=== PATIENT | female | born 1975 | race Caucasian/White ===

== ENCOUNTER 2016-12-08 12:41 | Emergency (ER) | payer MEDICAID ==
[~2016-12-08] VITALS: Ht 162.6 cm; Wt 80.2 kg
[2016-12-08] MEDS ORDERED: ONDANSETRON 2MG/ML, 2ML IVPush ONE (13:00)
[2016-12-08] MEDS ORDERED: SODIUM CHLORIDE 0.9% 1,000ML IVBOLUS ONE (13:00)
[2016-12-08] MEDS ORDERED: SODIUM CHLORIDE FLUSH 10ML SYR IVF ONE (13:00)
[2016-12-08] MEDS ORDERED: ONDANSETRON 2MG/ML, 2ML ONE (13:04)
[2016-12-08 14:00] LABS: BLOOD UREA NITROGEN 13 mg/dL (7-18)
[2016-12-08 14:08] LABS: ASPARTATE AMINO TRANSFERASE 302 U/L (15-37)
[2016-12-08 15:13] VITALS: BP 154/100
== END 2016-12-08 15:53 | disposition home or self-care (01) ==
LOC: ED 14:21
DX: R10.84 Generalized abdominal pain (principal); R11.2 Nausea with vomiting, unspecified; R19.7 Diarrhea, unspecified; R79.89 Other specified abnormal findings of blood chemistry; F17.200 Nicotine dependence, unspecified, uncomplicated
CPT/HCPCS: 36415; 74022; 76700; 80053; 81003; 83690; 84703; 85025; 86704; 86706; 86708; 86803; 87340; 96361; 96374; 99285; J2405; J7030

== ENCOUNTER 2018-07-24 10:24 | Inpatient (IN) | payer MEDICAID ==
[~2018-07-24] VITALS: Ht 162.6 cm; Wt 91.4 kg
[2018-07-24] MEDS ORDERED: ONDANSETRON 2MG/ML, 2ML IVPush ONE (11:00)
[2018-07-24] MEDS ORDERED: FAMOTIDINE 20 MG/2 ML IVP ONE (11:00)
[2018-07-24] MEDS ORDERED: MAALOX/HYOSCYAMINE/LIDOCAINE 45 ML BTL PO ONE (11:00)
[2018-07-24] MEDS ORDERED: MORPHINE SULFATE 4 MG/ML, 1ML IVPush PRN (11:00)
--- NOTE | 2018-07-24 11:04 | NUR ---
PT C/O ABDOMINAL PAIN SINCE THE "MIDDLE OF THE NIGHT" WITH TWO EPISODES OF VOMITING. PT HAD PAIN LAST THURSDAY WITH N/V THAT RESOLVED. PT REPORTS PAIN IN THE ABDOMEN WITH EATING. PT RECENTLY DIAGNOSED WITH HEP A. PT DENIES DIARRHEA. PT HAS BEEN TAKING 1600 MG OF ADVIL A DAY RECENTLY.
[2018-07-24] MEDS ORDERED: TIZA4CAP2 PO (11:07)
[2018-07-24] MEDS ORDERED: IBUP200T64 PO (11:07)
--- NOTE | 2018-07-24 11:20 | NUR ---
PT IN [facility], BOYFRIEND IN ROOM.
--- NOTE | 2018-07-24 11:39 | NUR ---
PT RETURNED FROM [facility] DR[facility] HEAVING, C/O "TUMMY PAIN" - GENERALIZED ABD PAIN, BUT "MOSTLY RIGHT SIDE UNDER MY BREAST". SX STARTED THURSDAY. ADVIL YESTERDAY FOR JAW PAIN. SAW PCP WHO ADVISED DDS EVAL FOR JAW PAIN. PT A&OX4, RESP NOW EVEN & UNLABORED, SPEECH CLEAR, SKIN WNL. LAST BM: YESTERDAY. LAST ORAL INTAKE: TEA AND COFFEE W/ CREAMER THIS AM.
[2018-07-24 11:43] LABS: BASOPHILS # (AUTO) 0.01 x10^3/uL (0-0.1); BASOPHILS % (AUTO) 0 % (0-1); EOSINOPHILS # (AUTO) 0.08 x10^3/uL (0-0.4); EOSINOPHILS % (AUTO) 1 % (1-7); LYMPHOCYTES # (AUTO) 1.13 x10^3/uL (1-3.4); LYMPHOCYTES % (AUTO) 7 % (22-44); MD NO; MEAN CORPUSCULAR HEMOGLOBIN 36.6 pg (27.0-34.8); MEAN CORPUSCULAR HGB CONC 34.5 g/dL (32.4-35.8); MEAN PLATELET VOLUME 8.1 fL (7.4-10.4); MONOCYTES # (AUTO) 0.82 x10^3/uL (0.2-0.8); MONOCYTES % (AUTO) 5 % (2-9); NEUTROPHILS # (AUTO) 13.32 x10^3/uL (1.8-6.8); NEUTROPHILS % (AUTO) 87 % (42-75); PLATELET COUNT 295 x10^3/uL (130-400); RED BLOOD COUNT 4.94 x10^6/uL (3.82-5.3); RED CELL DISTRIBUTION WIDTH 15.3 % (9.6-15.2)
--- NOTE | 2018-07-24 11:51 | NUR ---
PT NOTIFIED OF NEED FOR URINE SPECIMEN. PT STATES SHE'S CURRENTLY HAVING HER PERIOD; USING A PAD. WILL OBTAIN QUICK CATH SPECIMEN.
[2018-07-24 11:53] LABS: ALANINE AMINOTRANSFERASE 144 U/L (12-78); ALBUMIN 3.9 g/dL (3.4-5.0); ANION GAP 7 mmol/L (5-15); CALCIUM 9.7 mg/dL (8.5-10.1); CHLORIDE 103 mmol/L (98-107); CREATININE 0.78 mg/dL (0.55-1.02)
[2018-07-24 12:00] LABS: ALKALINE PHOSPHATASE 152 U/L (45-117); BILIRUBIN,TOTAL 0.9 mg/dL (0.2-1.0); TOTAL PROTEIN 7.6 g/dL (6.4-8.2)
--- NOTE | 2018-07-24 12:07 | NUR ---
QUICK CATH ATTEMPTED X 2; WILL SEEK ASSISTANCE.
--- NOTE | 2018-07-24 12:18 | NUR ---
QUICK CATH URINE SPECIMEN OBTAINED PER CRYSTAL ACOSTA. SPECIMEN WILL BE WALKED TO LAB.
[2018-07-24] MEDS ORDERED: MAALOX/HYOSCYAMINE/LIDOCAINE 45 ML BTL ONE (12:21)
[2018-07-24] MEDS ORDERED: MORPHINE SULFATE 4 MG/ML, 1ML ONE (12:36)
[2018-07-24 12:43] LABS: CULTURE INDICATED? YES; MICROSCOPIC INDICATED
--- NOTE | 2018-07-24 12:56 | NUR ---
DR ANDERSON BS TO DISCUSS POC
[2018-07-24] MEDS ORDERED: CEFTRIAXONE PMX 1GM/50ML 50 ML IV ONE (13:30)
[2018-07-24] MEDS ORDERED: hydrALAzine 20 MG/ML, 1ML IVPush PRN (13:30)
[2018-07-24] MEDS ORDERED: ONDANSETRON ODT 4 MG PO PRN (13:30)
[2018-07-24] MEDS ORDERED: ENALAPRILAT 1.25 MG/ML, 2ML IVPush PRN (13:30)
[2018-07-24] MEDS ORDERED: LORazepam 2 MG/ML, 1ML IV PRN ×3 (13:30)
[2018-07-24] MEDS ORDERED: DOCUSATE 100 MG CAPSULE PO PRN (13:30)
--- NOTE | 2018-07-24 13:36 | NUR ---
PT REPORT TO CRYSTAL MG FOR ROOM 334
[2018-07-24] MEDS ORDERED: CEFTRIAXONE PMX 1GM/50ML 50 ML ONE (13:42)
[2018-07-24] MEDS: morphine SULFATE 10 MG/ML, 1ML IVPush PRN ×4 (14:34→23:47)
[2018-07-24] MEDS: ONDANSETRON 2MG/ML, 2ML IVPush PRN ×2 (14:41→20:52)
[2018-07-24 14:42] VITALS: BP 162/110
[2018-07-24] MEDS: NICOTINE 21 MG/24 HR PATCH.TD24 TD SCH (14:45)
[2018-07-24] MEDS: POTASSIUM CHLORIDE 20 MEQ in LACTATED RINGERS 1,000 ML IV SCH (14:50)
[2018-07-24] MEDS: ENOXAPARIN 40 MG/0.4 ML SQ SCH (14:51)
[2018-07-24 15:02] VITALS: BP 162/110
[2018-07-24 18:35] VITALS: BP 150/101
[2018-07-24 20:56] VITALS: BP 145/92
[2018-07-24] MEDS: METOCLOPRAMIDE 5 MG/ML, 2ML IVPush PRN (23:47)
[2018-07-25 00:15] VITALS: BP 135/84
[2018-07-25] MEDS: POTASSIUM CHLORIDE 20 MEQ in LACTATED RINGERS 1,000 ML IV SCH ×2 (00:33→23:58)
[2018-07-25] MEDS: morphine SULFATE 10 MG/ML, 1ML IVPush PRN ×4 (03:05→20:04)
[2018-07-25] MEDS: ONDANSETRON 2MG/ML, 2ML IVPush PRN ×3 (03:05→20:04)
[2018-07-25 05:25] LABS: ANION GAP 7 mmol/L (5-15); CALCIUM 8.7 mg/dL (8.5-10.1); CHLORIDE 106 mmol/L (98-107); CREATININE 0.61 mg/dL (0.55-1.02); MEAN CORPUSCULAR HEMOGLOBIN 36.4 pg (27.0-34.8); MEAN CORPUSCULAR VOLUME 107.3 fL (80-100); MEAN PLATELET VOLUME 8.8 fL (7.4-10.4); PLATELET COUNT 236 x10^3/uL (130-400); RED BLOOD COUNT 4.72 x10^6/uL (3.82-5.3); RED CELL DISTRIBUTION WIDTH 15.7 % (9.6-15.2)
[2018-07-25] MEDS ORDERED: MAGNESIUM SULFATE 1 GM in SODIUM CHLORIDE 0.9% 50 ML IV ONE (06:00)
[2018-07-25] MEDS: LORazepam 2 MG/ML, 1ML IV PRN ×3 (06:15→18:25)
[2018-07-25 06:16] LABS: ANION GAP 7 mmol/L (5-15); CHLORIDE 106 mmol/L (98-107)
[2018-07-25 06:17] LABS: CALCIUM 8.7 mg/dL (8.5-10.1)
[2018-07-25 06:18] LABS: BILIRUBIN,TOTAL 0.9 mg/dL (0.2-1.0); CREATININE 0.66 mg/dL (0.55-1.02)
[2018-07-25 06:19] LABS: ALANINE AMINOTRANSFERASE 84 U/L (12-78); ALBUMIN 3.1 g/dL (3.4-5.0); ALKALINE PHOSPHATASE 123 U/L (45-117); TOTAL PROTEIN 6.6 g/dL (6.4-8.2)
[2018-07-25 06:27] LABS: BASOPHILS # (AUTO) 0.04 x10^3/uL (0-0.1); BASOPHILS % (AUTO) 0 % (0-1); EOSINOPHILS # (AUTO) 0.02 x10^3/uL (0-0.4); EOSINOPHILS % (AUTO) 0 % (1-7); LYMPHOCYTES # (AUTO) 0.96 x10^3/uL (1-3.4); LYMPHOCYTES % (AUTO) 5 % (22-44); MD SCAN; MONOCYTES # (AUTO) 0.95 x10^3/uL (0.2-0.8); MONOCYTES % (AUTO) 5 % (2-9); NEUTROPHILS # (AUTO) 16.23 x10^3/uL (1.8-6.8); NEUTROPHILS % (AUTO) 89 % (42-75)
[2018-07-25 06:52] VITALS: BP 149/92
[2018-07-25] MEDS: METOCLOPRAMIDE 5 MG/ML, 2ML IVPush PRN ×2 (07:00→14:22)
[2018-07-25] MEDS ORDERED: MULTIVITAMINS/MINERALS TABLET PO SCH (09:00)
[2018-07-25] MEDS: PANTOPRAZOLE 40 MG IV IVPush SCH (09:18)
[2018-07-25] MEDS: THIAMINE 100MG TABLET PO SCH (09:18)
[2018-07-25] MEDS: SENNA/DOCUSATE TABLET PO SCH (09:18)
[2018-07-25] MEDS: POTASSIUM CHLORIDE 20 MEQ, MAGNESIUM SULFATE 1 GM, FOLIC ACID 1 MG, MVI ADULT 10 ML in ... IV SCH (11:38)
[2018-07-25] MEDS: ENOXAPARIN 40 MG/0.4 ML SQ SCH (12:42)
[2018-07-25] MEDS: NICOTINE 21 MG/24 HR PATCH.TD24 TD SCH (12:56)
[2018-07-25 13:06] VITALS: BP 133/90
[2018-07-25] MEDS ORDERED: CEFTRIAXONE PMX 2GM/50ML 50 ML IV SCH (13:30)
[2018-07-25] MEDS ORDERED: ENALAPRILAT 1.25 MG/ML, 2ML IV PRN (16:00)
[2018-07-25 16:17] VITALS: BP 137/93
[2018-07-25 18:15] VITALS: BP 130/90
[2018-07-26] MEDS: LORazepam 2 MG/ML, 1ML IV PRN ×3 (00:17→20:45)
[2018-07-26 01:36] VITALS: BP 121/87
[2018-07-26] MEDS: ACETAMINOPHEN 325 MG TABLET PO PRN ×3 (05:06→22:45)
[2018-07-26 06:42] VITALS: BP 128/83
[2018-07-26 06:46] LABS: MEAN CORPUSCULAR HEMOGLOBIN 36.5 pg (27.0-34.8); MEAN CORPUSCULAR HGB CONC 33.7 g/dL (32.4-35.8); MEAN CORPUSCULAR VOLUME 108.4 fL (80-100); MEAN PLATELET VOLUME 9.2 fL (7.4-10.4); PLATELET COUNT 210 x10^3/uL (130-400); RED BLOOD COUNT 4.46 x10^6/uL (3.82-5.3); RED CELL DISTRIBUTION WIDTH 15.9 % (9.6-15.2)
[2018-07-26 06:55] LABS: ANION GAP 6 mmol/L (5-15); CALCIUM 8.7 mg/dL (8.5-10.1); CHLORIDE 107 mmol/L (98-107)
[2018-07-26 07:00] LABS: ALANINE AMINOTRANSFERASE 55 U/L (12-78); ALKALINE PHOSPHATASE 121 U/L (45-117); BILIRUBIN,TOTAL 1.3 mg/dL (0.2-1.0); CREATININE 0.67 mg/dL (0.55-1.02); TOTAL PROTEIN 6.5 g/dL (6.4-8.2)
[2018-07-26 08:00] LABS: MD YES
[2018-07-26 08:03] LABS: BAND#(MANUAL) 0.21 x10^3/uL; BANDS%(MANUAL) 1 % (0-7); LYMPH#(MANUAL) 1.05 x10^3/uL (1-3.4); LYMPHS% (MANUAL) 5 % (22-44); MONOS#(MANUAL) 0.63 x10^3/uL (0.3-2.7); MONOS% (MANUAL) 3 % (2-9); SEG#(MANUAL) 19.02 x10^3/uL (1.8-6.8); SEGS% (MANUAL) 91 % (42-75)
[2018-07-26 08:04] LABS: <PLATELET ESTIMATE> ADEQUATE; <PLT MORPHOLOGY> NORMAL PLT MORPH; <RBC MORPHOLOGY> NORMAL
[2018-07-26] MEDS ORDERED: OMNIPAQUE 350 MG/ML, 100ML BOTTLE ONE (08:58)
[2018-07-26] MEDS ORDERED: THIAMINE 100 MG in DEXTROSE 5% 50 ML IVPB SCH (09:00)
[2018-07-26] MEDS: SENNA/DOCUSATE TABLET PO SCH (10:15)
[2018-07-26] MEDS: PANTOPRAZOLE 40 MG IV IVPush SCH (10:15)
[2018-07-26] MEDS: THIAMINE 100MG TABLET PO SCH (10:15)
[2018-07-26] MEDS: METOCLOPRAMIDE 5 MG/ML, 2ML IVPush PRN (10:26)
[2018-07-26] MEDS: POTASSIUM CHLORIDE 20 MEQ, MAGNESIUM SULFATE 1 GM, FOLIC ACID 1 MG, MVI ADULT 10 ML in ... IV SCH (11:01)
[2018-07-26 12:38] VITALS: BP 146/87
[2018-07-26] MEDS: NICOTINE 21 MG/24 HR PATCH.TD24 TD SCH (12:43)
[2018-07-26] MEDS: ENOXAPARIN 40 MG/0.4 ML SQ SCH (12:44)
[2018-07-26] MEDS ORDERED: AZITHROMYCIN 500 MG in SODIUM CHLORIDE 0.9% 250 ML IV ONE (14:30)
[2018-07-26] MEDS: AMPICILLIN/SULBACTAM 1,500 MG in SODIUM CHLORIDE 0.9% 50 ML IV SCH ×2 (15:00→22:39)
[2018-07-26] MEDS: AZITHROMYCIN 500 MG in SODIUM CHLORIDE 0.9% 250 ML IV SCH (17:31)
[2018-07-26 19:39] VITALS: BP 139/95
[2018-07-26] MEDS: POTASSIUM CHLORIDE 20 MEQ in LACTATED RINGERS 1,000 ML IV SCH (22:39)
[2018-07-27 03:04] VITALS: BP 144/92
[2018-07-27 05:03] LABS: MEAN CORPUSCULAR HEMOGLOBIN 36.5 pg (27.0-34.8); MEAN CORPUSCULAR HGB CONC 33.8 g/dL (32.4-35.8); MEAN CORPUSCULAR VOLUME 107.8 fL (80-100); MEAN PLATELET VOLUME 9.7 fL (7.4-10.4); PLATELET COUNT 211 x10^3/uL (130-400); RED BLOOD COUNT 4.04 x10^6/uL (3.82-5.3); RED CELL DISTRIBUTION WIDTH 15.9 % (9.6-15.2)
[2018-07-27 05:06] LABS: ALANINE AMINOTRANSFERASE 56 U/L (12-78); ALBUMIN 2.7 g/dL (3.4-5.0); ANION GAP 5 mmol/L (5-15); CALCIUM 7.7 mg/dL (8.5-10.1); CHLORIDE 106 mmol/L (98-107); CREATININE 0.65 mg/dL (0.55-1.02)
[2018-07-27 05:08] LABS: ALKALINE PHOSPHATASE 140 U/L (45-117); BILIRUBIN,TOTAL 1.5 mg/dL (0.2-1.0); TOTAL PROTEIN 5.9 g/dL (6.4-8.2)
[2018-07-27] MEDS: AMPICILLIN/SULBACTAM 1,500 MG in SODIUM CHLORIDE 0.9% 50 ML IV SCH ×3 (06:08→22:28)
[2018-07-27 06:15] LABS: BASOPHILS # (AUTO) 0.05 x10^3/uL (0-0.1); BASOPHILS % (AUTO) 0 % (0-1); EOSINOPHILS # (AUTO) 0.15 x10^3/uL (0-0.4); EOSINOPHILS % (AUTO) 1 % (1-7); LYMPHOCYTES # (AUTO) 1.33 x10^3/uL (1-3.4); LYMPHOCYTES % (AUTO) 7 % (22-44); MD SCAN; MONOCYTES # (AUTO) 1.25 x10^3/uL (0.2-0.8); MONOCYTES % (AUTO) 7 % (2-9); NEUTROPHILS # (AUTO) 15.66 x10^3/uL (1.8-6.8); NEUTROPHILS % (AUTO) 85 % (42-75)
[2018-07-27] MEDS ORDERED: OXYcodone IR 5MG TABLET PO PRN (07:00)
[2018-07-27 08:29] VITALS: BP 160/103
[2018-07-27] MEDS: PANTOPRAZOLE 40 MG IV IVPush SCH (08:45)
[2018-07-27] MEDS: THIAMINE 100MG TABLET PO SCH (08:46)
[2018-07-27] MEDS: SENNA/DOCUSATE TABLET PO SCH (08:46)
[2018-07-27] MEDS: METOCLOPRAMIDE 5 MG/ML, 2ML IVPush PRN (12:36)
[2018-07-27] MEDS: POTASSIUM CHLORIDE 20 MEQ, MAGNESIUM SULFATE 1 GM, FOLIC ACID 1 MG, MVI ADULT 10 ML in ... IV SCH (12:45)
[2018-07-27 13:19] VITALS: BP 150/95
[2018-07-27] MEDS: NICOTINE 21 MG/24 HR PATCH.TD24 TD SCH (14:18)
[2018-07-27] MEDS: ENOXAPARIN 40 MG/0.4 ML SQ SCH (14:19)
[2018-07-27] MEDS: IBUPROFEN 200 MG TABLET PO PRN ×2 (16:42→22:27)
[2018-07-27] MEDS: AZITHROMYCIN 500 MG in SODIUM CHLORIDE 0.9% 250 ML IV SCH (18:46)
[2018-07-27 20:24] VITALS: BP 144/93
[2018-07-27] MEDS: ZOLPIDEM 5MG TABLET PO PRN (22:27)
[2018-07-28 03:56] VITALS: BP 152/94
[2018-07-28] MEDS: IBUPROFEN 200 MG TABLET PO PRN ×2 (05:07→20:21)
[2018-07-28 05:15] LABS: MEAN CORPUSCULAR HEMOGLOBIN 36.2 pg (27.0-34.8); MEAN CORPUSCULAR HGB CONC 33.8 g/dL (32.4-35.8); MEAN CORPUSCULAR VOLUME 107.1 fL (80-100); MEAN PLATELET VOLUME 9.2 fL (7.4-10.4); PLATELET COUNT 265 x10^3/uL (130-400); RED BLOOD COUNT 3.88 x10^6/uL (3.82-5.3); RED CELL DISTRIBUTION WIDTH 15.3 % (9.6-15.2)
[2018-07-28 05:55] LABS: BASOPHILS # (AUTO) 0.03 x10^3/uL (0-0.1); BASOPHILS % (AUTO) 0 % (0-1); EOSINOPHILS # (AUTO) 0.26 x10^3/uL (0-0.4); EOSINOPHILS % (AUTO) 2 % (1-7); LYMPHOCYTES # (AUTO) 1.06 x10^3/uL (1-3.4); LYMPHOCYTES % (AUTO) 8 % (22-44); MD SCAN; MONOCYTES # (AUTO) 1.22 x10^3/uL (0.2-0.8); MONOCYTES % (AUTO) 9 % (2-9); NEUTROPHILS # (AUTO) 10.59 x10^3/uL (1.8-6.8); NEUTROPHILS % (AUTO) 81 % (42-75)
[2018-07-28] MEDS: AMPICILLIN/SULBACTAM 1,500 MG in SODIUM CHLORIDE 0.9% 50 ML IV SCH (06:16)
[2018-07-28 07:43] LABS: ALANINE AMINOTRANSFERASE 57 U/L (12-78); ALBUMIN 2.7 g/dL (3.4-5.0); ANION GAP 6 mmol/L (5-15); CHLORIDE 110 mmol/L (98-107); CREATININE 0.49 mg/dL (0.55-1.02)
[2018-07-28 07:44] VITALS: BP 155/103
[2018-07-28 07:45] LABS: ALKALINE PHOSPHATASE 136 U/L (45-117); BILIRUBIN,TOTAL 1.9 mg/dL (0.2-1.0); TOTAL PROTEIN 6.3 g/dL (6.4-8.2)
[2018-07-28] MEDS: PANTOPRAZOLE 40 MG IV IVPush SCH (08:45)
[2018-07-28] MEDS: THIAMINE 100MG TABLET PO SCH (08:45)
[2018-07-28] MEDS: SENNA/DOCUSATE TABLET PO SCH (08:45)
[2018-07-28] MEDS: POTASSIUM CHLORIDE 20 MEQ, MAGNESIUM SULFATE 1 GM, FOLIC ACID 1 MG, MVI ADULT 10 ML in ... IV SCH (10:44)
[2018-07-28] MEDS: ENOXAPARIN 40 MG/0.4 ML SQ SCH (15:23)
[2018-07-28] MEDS: NICOTINE 21 MG/24 HR PATCH.TD24 TD SCH (15:23)
[2018-07-28 15:28] VITALS: BP 155/98
[2018-07-28 15:35] LABS: CLOSTRIDIUM DIFFICILE ANTIGEN NEGATIVE; CLOSTRIDIUM DIFFICILE TOXIN NEGATIVE (Negative)
[2018-07-28 18:59] VITALS: BP 149/99
[2018-07-28] MEDS: ZOLPIDEM 5MG TABLET PO PRN (20:21)
[2018-07-28] MEDS: DOXYCYCLINE 100MG TABLET PO SCH (20:21)
[2018-07-28] MEDS: AMOXICILLIN/CLAV 875-125MG TABLET PO SCH (20:21)
[2018-07-29 01:34] VITALS: BP 152/99
[2018-07-29] MEDS: IBUPROFEN 200 MG TABLET PO PRN ×2 (02:12→09:12)
[2018-07-29 04:45] LABS: BASOPHILS # (AUTO) 0.04 x10^3/uL (0-0.1); BASOPHILS % (AUTO) 0 % (0-1); EOSINOPHILS # (AUTO) 0.31 x10^3/uL (0-0.4); EOSINOPHILS % (AUTO) 2 % (1-7); LYMPHOCYTES % (AUTO) 8 % (22-44); MD NO; MEAN CORPUSCULAR HEMOGLOBIN 36.2 pg (27.0-34.8); MEAN CORPUSCULAR HGB CONC 33.6 g/dL (32.4-35.8); MEAN CORPUSCULAR VOLUME 107.7 fL (80-100); MEAN PLATELET VOLUME 9.1 fL (7.4-10.4); MONOCYTES # (AUTO) 1.32 x10^3/uL (0.2-0.8); MONOCYTES % (AUTO) 10 % (2-9); NEUTROPHILS % (AUTO) 80 % (42-75); PLATELET COUNT 309 x10^3/uL (130-400); RED BLOOD COUNT 3.84 x10^6/uL (3.82-5.3); RED CELL DISTRIBUTION WIDTH 14.9 % (9.6-15.2)
[2018-07-29 04:53] LABS: ALBUMIN 2.7 g/dL (3.4-5.0); ANION GAP 6 mmol/L (5-15); CALCIUM 8.2 mg/dL (8.5-10.1); CHLORIDE 109 mmol/L (98-107)
[2018-07-29 04:57] LABS: ALANINE AMINOTRANSFERASE 48 U/L (12-78); ALKALINE PHOSPHATASE 130 U/L (45-117); BILIRUBIN,TOTAL 1.3 mg/dL (0.2-1.0); CREATININE 0.45 mg/dL (0.55-1.02); TOTAL PROTEIN 6.3 g/dL (6.4-8.2)
[2018-07-29 06:57] VITALS: BP 158/99
[2018-07-29] MEDS: AMOXICILLIN/CLAV 875-125MG TABLET PO SCH (07:58)
[2018-07-29] MEDS: DOXYCYCLINE 100MG TABLET PO SCH (07:58)
[2018-07-29] MEDS: THIAMINE 100MG TABLET PO SCH (07:58)
[2018-07-29] MEDS: SENNA/DOCUSATE TABLET PO SCH (07:58)
[2018-07-29] MEDS ORDERED: NICO-487 TD (13:01)
[2018-07-29] MEDS: NICOTINE 21 MG/24 HR PATCH.TD24 TD SCH (14:04)
[2018-07-29] MEDS: ENOXAPARIN 40 MG/0.4 ML SQ SCH (14:05)
== END 2018-07-29 14:55 | disposition home or self-care (01) | DRG 438 ==
LOC: ED 11:28 → EDIP 12:59 → 3NW 13:56 → DCLOUNGE 07-29 14:40
PROVIDERS: ADMIT Family Medicine; ATTEND Family Medicine
PROC: 0T9B70Z Drainage of Bladder with Drainage Device, Via Natural or Artificial Opening (ICD-10-PCS; principal; 2018-07-24)
DX: K85.20 Alcohol induced acute pancreatitis without necrosis or infection (principal); J18.1 Lobar pneumonia, unspecified organism; J98.11 Atelectasis; F10.20 Alcohol dependence, uncomplicated; K70.10 Alcoholic hepatitis without ascites; F17.200 Nicotine dependence, unspecified, uncomplicated; I15.8 Other secondary hypertension; K70.0 Alcoholic fatty liver; N83.202 Unspecified ovarian cyst, left side
CPT/HCPCS: 36415; 74022; 99285; J7042; 74177; 76700; 76705; 80048; 80053; 80074; 81001; 83690; 83735; 84100; 84703; 85025; 86677; 87077; 87086; 87186; 87324; 93005; 96374; 96375; G0378; J0456; J0696; J1650; J2405; J3475; J3480; Q0162; Q9967; C9113; J0295; J0360; J2060; J2270; J2765; J7050; J7120

== ENCOUNTER 2019-12-18 10:49 | Inpatient (IN) | payer MEDICAID ==
[~2019-12-18] VITALS: Ht 165.1 cm; Wt 74.0 kg
[~2019-12-18 10:49] MED LIST: IBUP200T64 PO; NICO-487 TD; TIZA4CAP2 PO
[2019-12-18] MEDS ORDERED: ONDANSETRON 2MG/ML, 2ML IVPush ONE (11:30)
[2019-12-18] MEDS ORDERED: THIAMINE 100MG TABLET PO ONE (11:30)
[2019-12-18] MEDS ORDERED: LORazepam 2 MG/ML, 1ML IVPush PRN (11:30)
[2019-12-18] MEDS ORDERED: ONDANSETRON ODT 4 MG PO ONE (11:30)
--- NOTE | 2019-12-18 11:46 | NUR ---
PT PRESENTS TO ED WITH C/O BILATERAL UPPER ABD PAIN, AND BILATERAL FLANK PAIN WITH N/V ONSET YESTERDAY. PT STATES SHE SAW HER PCP 12/08/19 WHO DIAGNOSED HER WITH UTI BUT SHE BEGAN TO FEEL BETTER SO SHE DID NOT FILL HER SCRIPT FOR ANTIBIOTICS. PT ADMITS TO ALCOHOLISM, WITH INTERMITTENT BINGES CONSUMPTION PATTERN, LAST DRINK 12/10/19. PT IS A&O, RESPS EVEN AND UNLABORED. URINE PROVIDED AND WALKED TO LAB. ALL MONITORS IN PLACE. PT SEEN BY ED RESIDENT AND MD KNIGHT. CALL LIGHT IN REACH, PT INFORMED OF POC, AGREEABLE.
[2019-12-18] MEDS ORDERED: LORazepam 2 MG/ML, 1ML ONE (11:50)
[2019-12-18] MEDS ORDERED: THIAMINE 100MG TABLET ONE (11:51)
[2019-12-18] MEDS ORDERED: ONDANSETRON 2MG/ML, 2ML ONE (11:51)
[2019-12-18 11:59] LABS: BASOPHILS # (AUTO) 0.09 x10^3/uL (0-0.1); BASOPHILS % (AUTO) 1 % (0-1); EOSINOPHILS # (AUTO) 0.02 x10^3/uL (0-0.4); EOSINOPHILS % (AUTO) 0 % (1-7); LYMPHOCYTES # (AUTO) 1.62 x10^3/uL (1-3.4); LYMPHOCYTES % (AUTO) 13 % (22-44); MD NO; MEAN CORPUSCULAR HEMOGLOBIN 33.6 pg (27.0-34.8); MEAN CORPUSCULAR HGB CONC 32.6 g/dL (32.4-35.8); MEAN CORPUSCULAR VOLUME 103.1 fL (80-100); MEAN PLATELET VOLUME 8.1 fL (7.4-10.4); MONOCYTES # (AUTO) 0.62 x10^3/uL (0.2-0.8); MONOCYTES % (AUTO) 5 % (2-9); NEUTROPHILS # (AUTO) 10.57 x10^3/uL (1.8-6.8); NEUTROPHILS % (AUTO) 82 % (42-75); PLATELET COUNT 270 x10^3/uL (130-400); RED BLOOD COUNT 4.84 x10^6/uL (3.82-5.3)
--- NOTE | 2019-12-18 12:10 | NUR ---
pt declines zofran dose, states she is not nauseated. report given to CRYSTAL Valentine who is assuming care.
[2019-12-18 12:12] LABS: ALANINE AMINOTRANSFERASE 39 U/L (12-78); ALBUMIN 3.9 g/dL (3.4-5.0); ANION GAP 8 mmol/L (5-15); CALCIUM 8.8 mg/dL (8.5-10.1); CHLORIDE 105 mmol/L (98-107); CREATININE 0.84 mg/dL (0.55-1.02)
[2019-12-18 12:14] LABS: ALKALINE PHOSPHATASE 199 U/L (45-117); BILIRUBIN,TOTAL 1.2 mg/dL (0.2-1.0); TOTAL PROTEIN 7.7 g/dL (6.4-8.2)
--- NOTE | 2019-12-18 13:09 | NUR ---
Provider to bedside, discuissing POC and admission.
[2019-12-18] MEDS ORDERED: MELATONIN 5 MG TABLET PO PRN (14:00)
[2019-12-18] MEDS ORDERED: LORazepam 2 MG/ML, 1ML IV PRN ×5 (14:00)
[2019-12-18] MEDS ORDERED: LABETALOL 5MG/ML, 20ML IVPush PRN (14:00)
[2019-12-18] MEDS ORDERED: ONDANSETRON 2MG/ML, 2ML IVPush PRN (14:00)
[2019-12-18] MEDS ORDERED: ENALAPRILAT 1.25 MG/ML, 2ML IVPush PRN (14:00)
[2019-12-18] MEDS ORDERED: POLYETHYLENE GLYCOL 17 GM PACKET PO PRN (14:00)
[2019-12-18] MEDS ORDERED: PROMETHAZINE 25 MG/ML, 1ML IM PRN (14:00)
[2019-12-18] MEDS ORDERED: BISACODYL 10 MG SUPP PR PRN (14:00)
[2019-12-18] MEDS: ENOXAPARIN 40 MG/0.4 ML SQ SCH (14:00)
[2019-12-18] MEDS ORDERED: hydrALAzine 20 MG/ML, 1ML IVPush PRN (14:00)
[2019-12-18] MEDS ORDERED: DOCUSATE 100 MG CAPSULE PO PRN (14:00)
[2019-12-18] MEDS ORDERED: ONDANSETRON ODT 4 MG PO PRN (14:00)
[2019-12-18 14:52] VITALS: BP 159/99
[2019-12-18] MEDS ORDERED: NALT50TA PO (15:05)
[2019-12-18] MEDS ORDERED: LISI-170 PO (15:05)
[2019-12-18] MEDS: NICOTINE 14MG/24 HR PATCH.TD24 TD SCH (15:55)
[2019-12-18] MEDS: POTASSIUM CHLORIDE 20 MEQ in LACTATED RINGERS 1,000 ML IV SCH (15:55)
[2019-12-18] MEDS: HYDROcodone/APAP 5/325 TABLET PO PRN ×2 (16:05→20:15)
[2019-12-18 17:10] LABS: MICROSCOPIC INDICATED
[2019-12-18] MEDS: CEFTRIAXONE PMX 1GM/50ML 50 ML IV SCH (17:46)
[2019-12-18] MEDS: IBUPROFEN 600 MG TABLET PO PRN (18:36)
[2019-12-18 19:56] VITALS: BP 155/99
[2019-12-18] MEDS: FAMOTIDINE 10 MG TAB PO SCH (20:14)
[2019-12-19 01:59] VITALS: BP 142/93
[2019-12-19] MEDS: HYDROcodone/APAP 5/325 TABLET PO PRN ×4 (02:05→15:12)
[2019-12-19] MEDS: POTASSIUM CHLORIDE 20 MEQ in LACTATED RINGERS 1,000 ML IV SCH (05:09)
[2019-12-19] MEDS: IBUPROFEN 600 MG TABLET PO PRN ×2 (05:09→14:07)
[2019-12-19 05:19] LABS: BASOPHILS # (AUTO) 0.05 x10^3/uL (0-0.1); BASOPHILS % (AUTO) 1 % (0-1); EOSINOPHILS # (AUTO) 0.22 x10^3/uL (0-0.4); EOSINOPHILS % (AUTO) 2 % (1-7); LYMPHOCYTES # (AUTO) 1.66 x10^3/uL (1-3.4); LYMPHOCYTES % (AUTO) 17 % (22-44); MD NO; MEAN CORPUSCULAR HEMOGLOBIN 34.2 pg (27.0-34.8); MEAN CORPUSCULAR HGB CONC 33.4 g/dL (32.4-35.8); MEAN CORPUSCULAR VOLUME 102.4 fL (80-100); MEAN PLATELET VOLUME 8.5 fL (7.4-10.4); MONOCYTES # (AUTO) 0.61 x10^3/uL (0.2-0.8); MONOCYTES % (AUTO) 6 % (2-9); NEUTROPHILS # (AUTO) 7.42 x10^3/uL (1.8-6.8); NEUTROPHILS % (AUTO) 75 % (42-75); PLATELET COUNT 211 x10^3/uL (130-400); RED BLOOD COUNT 4.52 x10^6/uL (3.82-5.3); RED CELL DISTRIBUTION WIDTH 14.1 % (9.6-15.2)
[2019-12-19 05:24] LABS: ALANINE AMINOTRANSFERASE 31 U/L (12-78); ALBUMIN 2.9 g/dL (3.4-5.0); ANION GAP 8 mmol/L (5-15); CALCIUM 8.7 mg/dL (8.5-10.1); CHLORIDE 103 mmol/L (98-107); CREATININE 0.58 mg/dL (0.55-1.02)
[2019-12-19 05:29] LABS: ALKALINE PHOSPHATASE 165 U/L (45-117); BILIRUBIN,TOTAL 1.3 mg/dL (0.2-1.0); TOTAL PROTEIN 6.6 g/dL (6.4-8.2)
[2019-12-19] MEDS ORDERED: LISINOPRIL 10 MG TABLET ONE (08:07)
[2019-12-19] MEDS: FAMOTIDINE 10 MG TAB PO SCH (08:09)
[2019-12-19 08:35] VITALS: BP 147/95
[2019-12-19] MEDS ORDERED: LISINOPRIL 20 MG TABLET PO SCH (09:00)
[2019-12-19] MEDS ORDERED: MULTIVITAMINS/MINERALS TABLET PO SCH (09:00)
[2019-12-19] MEDS ORDERED: POTASSIUM CHLORIDE 20 MEQ, MAGNESIUM SULFATE 1 GM, THIAMINE 200 MG, FOLIC ACID 1 MG, MV... IV SCH ×2 (11:30→13:49)
[2019-12-19] MEDS ORDERED: POTASSIUM CHLORIDE 20 MEQ in LACTATED RINGERS 1,000 ML IV SCH (13:32)
[2019-12-19] MEDS: ENOXAPARIN 40 MG/0.4 ML SQ SCH (14:00)
[2019-12-19] MEDS: NICOTINE 14MG/24 HR PATCH.TD24 TD SCH (14:07)
[2019-12-19 14:48] VITALS: BP 143/95
[2019-12-19] MEDS ORDERED: AMOX1TAB64 PO (14:48)
[2019-12-19] MEDS: CEFTRIAXONE PMX 1GM/50ML 50 ML IV SCH (15:04)
== END 2019-12-19 17:29 | disposition home or self-care (01) | DRG 689 ==
LOC: ED 12:34 → EDIP 13:07 → 4WST 14:45
PROVIDERS: ADMIT Family Medicine; ATTEND Family Medicine
DX: N39.0 Urinary tract infection, site not specified (principal); K85.20 Alcohol induced acute pancreatitis without necrosis or infection; F17.210 Nicotine dependence, cigarettes, uncomplicated; F12.10 Cannabis abuse, uncomplicated; D72.829 Elevated white blood cell count, unspecified; I10 Essential (primary) hypertension; E86.0 Dehydration; Z72.89 Other problems related to lifestyle; Z80.42 Family history of malignant neoplasm of prostate; Z80.8 Family history of malignant neoplasm of other organs or systems; Z79.899 Other long term (current) drug therapy; Z71.6 Tobacco abuse counseling
CPT/HCPCS: 36415; 74178; 80053; 81001; 81025; 83690; 83735; 85025; 87086; 93005; G0378; J0696; J3411; J3475; J3480; J2060; J7030; J7120

== ENCOUNTER 2020-02-13 09:22 | Inpatient (IN) | payer MEDICAID ==
[~2020-02-13] VITALS: Ht 162.6 cm; Wt 72.4 kg
[~2020-02-13 09:22] MED LIST changes: +AMOX1TAB64 PO; +LISI-170 PO; +NALT50TA PO
--- NOTE | 2020-02-13 09:42 | NUR ---
first contact with pt. 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 pt stated "last drink was Thursday." pt's aox4. resps even and unlabored. sinus tachy on nuclear monitoring technician rated 100's at this time. all monitors in place. call light within reach. ekg done at bedside. pa at bedside evaluating at this time.
[2020-02-13] MEDS ORDERED: ONDANSETRON 2MG/ML, 2ML ONE (09:48)
[2020-02-13] MEDS ORDERED: THIAMINE 100MG TABLET ONE (09:48)
[2020-02-13] MEDS ORDERED: LORazepam 2 MG/ML, 1ML ONE ×2 (09:49→12:05)
[2020-02-13] MEDS: LORazepam 2 MG/ML, 1ML IVPush PRN ×2 (09:57→12:25)
[2020-02-13] MEDS ORDERED: ONDANSETRON 2MG/ML, 2ML IVPush ONE (10:00)
[2020-02-13] MEDS ORDERED: SODIUM CHLORIDE 0.9% 1,000ML IVBOLUS ONE (10:00)
[2020-02-13] MEDS ORDERED: THIAMINE 100MG TABLET PO ONE (10:00)
--- NOTE | 2020-02-13 10:05 | NUR ---
piv est on R ac with no complications. pt medicated per emar. ns infusing at this time. pt tolerated well.
--- NOTE | 2020-02-13 10:06 | NUR ---
us at bedside at this time.
[2020-02-13 10:07] LABS: BASOPHILS # (AUTO) 0.04 x10^3/uL (0-0.1); BASOPHILS % (AUTO) 1 % (0-1); EOSINOPHILS % (AUTO) 0 % (1-7); LYMPHOCYTES # (AUTO) 0.74 x10^3/uL (1-3.4); LYMPHOCYTES % (AUTO) 11 % (22-44); MD NO; MEAN CORPUSCULAR HEMOGLOBIN 33.9 pg (27.0-34.8); MEAN CORPUSCULAR HGB CONC 34.3 g/dL (32.4-35.8); MEAN CORPUSCULAR VOLUME 98.6 fL (80-100); MEAN PLATELET VOLUME 8.5 fL (7.4-10.4); MONOCYTES # (AUTO) 0.32 x10^3/uL (0.2-0.8); MONOCYTES % (AUTO) 5 % (2-9); NEUTROPHILS # (AUTO) 5.77 x10^3/uL (1.8-6.8); NEUTROPHILS % (AUTO) 84 % (42-75); PLATELET COUNT 151 x10^3/uL (130-400); RED BLOOD COUNT 4.62 x10^6/uL (3.82-5.3); RED CELL DISTRIBUTION WIDTH 13.3 % (9.6-15.2)
[2020-02-13 10:16] LABS: INTERNATIONAL NORMALIZED RATIO 1.11 (0.93-1.1); PROTHROMBIN TIME 11.4 Seconds (9.6-11.5)
[2020-02-13 10:18] LABS: ALBUMIN 3.9 g/dL (3.4-5.0); ANION GAP 10 mmol/L (5-15); CALCIUM 8.9 mg/dL (8.5-10.1); CHLORIDE 104 mmol/L (98-107)
[2020-02-13 10:24] LABS: ALANINE AMINOTRANSFERASE 46 U/L (12-78); ALKALINE PHOSPHATASE 140 U/L (45-117); BILIRUBIN,TOTAL 1.1 mg/dL (0.2-1.0); CREATININE 0.74 mg/dL (0.55-1.02); TOTAL PROTEIN 7.3 g/dL (6.4-8.2)
--- NOTE | 2020-02-13 10:46 | NUR ---
pt resting in [facility]. pt's aox4. resps even and unlabored. all monitors in place. call light within reach.
--- NOTE | 2020-02-13 11:13 | NUR ---
emt at bedside for splint at this time.
--- NOTE | 2020-02-13 11:46 | NUR ---
hospitalist at bedside at this time.
[2020-02-13] MEDS ORDERED: THIAMINE 200 MG in DEXTROSE 5% 50 ML IVPB ONE (12:00)
[2020-02-13] MEDS ORDERED: hydrALAzine 20 MG/ML, 1ML IVPush PRN (12:00)
[2020-02-13] MEDS ORDERED: LABETALOL 5MG/ML, 20ML IVPush PRN (12:00)
[2020-02-13] MEDS ORDERED: FOLIC ACID 5 MG/ML IM ONE (12:00)
[2020-02-13] MEDS ORDERED: DOCUSATE 100 MG CAPSULE PO PRN (12:00)
[2020-02-13] MEDS: LACTATED RINGERS 1,000 ML IV SCH ×2 (12:00→20:00)
[2020-02-13] MEDS ORDERED: ONDANSETRON 2MG/ML, 2ML IVPush PRN (12:00)
[2020-02-13] MEDS ORDERED: LORazepam 2 MG/ML, 1ML IV PRN ×2 (12:00)
[2020-02-13] MEDS ORDERED: SODIUM CHLORIDE FLUSH 10ML SYR IVF PRN (12:00)
[2020-02-13] MEDS ORDERED: ENOXAPARIN 40 MG/0.4 ML ONE (12:05)
[2020-02-13] MEDS ORDERED: NICOTINE 21 MG/24 HR PATCH.TD24 ONE (12:05)
[2020-02-13] MEDS: NICOTINE 21 MG/24 HR PATCH.TD24 TD SCH (12:23)
[2020-02-13] MEDS: ENOXAPARIN 40 MG/0.4 ML SQ SCH (12:23)
--- NOTE | 2020-02-13 12:31 | NUR ---
Pt medciated per emar and thiamine and folvite requested from pharmacy.
--- NOTE | 2020-02-13 12:58 | NUR ---
this rn paged unr.
[2020-02-13] MEDS ORDERED: FOLIC ACID 1 MG TABLET PO ONE (13:30)
--- NOTE | 2020-02-13 14:10 | NUR ---
PT RESTING IN [facility]. PT'S AOX4. RESPS EVEN AND UNLABORED. ALL MONITORS IN PLACE. CALL LIGHT WITHIN REACH.
--- NOTE | 2020-02-13 14:44 | NUR ---
LR AND THIAMINE 200MG IN D5W ARE COMPATIBLE PER PHARMACY. PT MEDICATED PER EMAR. PT TOLERATED WELL.
--- NOTE | 2020-02-13 15:16 | NUR ---
REPORT GIVEN TO ALLI ROJAS. ALL QUESTIONS ANSWERED.
[2020-02-13 15:46] VITALS: BP 153/97
[2020-02-13] MEDS: OMEPRAZOLE 20 MG CAPSULE.DR PO SCH (16:16)
[2020-02-13] MEDS: LORazepam 2 MG/ML, 1ML IV PRN ×3 (16:16→22:17)
[2020-02-13 19:24] VITALS: BP 143/94
[2020-02-13 23:10] LABS: MICROSCOPIC INDICATED
[2020-02-13 23:59] VITALS: BP 150/96
[2020-02-14] MEDS: LACTATED RINGERS 1,000 ML IV SCH ×2 (04:00→17:53)
[2020-02-14 05:41] LABS: CHLORIDE 106 mmol/L (98-107)
[2020-02-14 05:47] LABS: MEAN CORPUSCULAR HEMOGLOBIN 33.6 pg (27.0-34.8); MEAN CORPUSCULAR HGB CONC 33.9 g/dL (32.4-35.8); RED BLOOD COUNT 4.31 x10^6/uL (3.82-5.3); RED CELL DISTRIBUTION WIDTH 13.5 % (9.6-15.2)
[2020-02-14 05:50] LABS: ALANINE AMINOTRANSFERASE 51 U/L (12-78); ALKALINE PHOSPHATASE 130 U/L (45-117); ANION GAP 7 mmol/L (5-15); BILIRUBIN,TOTAL 1.6 mg/dL (0.2-1.0); CALCIUM 8.3 mg/dL (8.5-10.1); CREATININE 0.47 mg/dL (0.55-1.02); TOTAL PROTEIN 5.9 g/dL (6.4-8.2)
[2020-02-14] MEDS: OMEPRAZOLE 20 MG CAPSULE.DR PO SCH (06:21)
[2020-02-14] MEDS: LORazepam 2 MG/ML, 1ML IV PRN ×3 (06:22→21:11)
[2020-02-14 06:38] LABS: BASOPHILS # (AUTO) 0.04 x10^3/uL (0-0.1); BASOPHILS % (AUTO) 1 % (0-1); EOSINOPHILS # (AUTO) 0.14 x10^3/uL (0-0.4); EOSINOPHILS % (AUTO) 3 % (1-7); LYMPHOCYTES # (AUTO) 1.26 x10^3/uL (1-3.4); LYMPHOCYTES % (AUTO) 25 % (22-44); MD SCAN; MEAN PLATELET VOLUME 9.4 fL (7.4-10.4); MONOCYTES % (AUTO) 6 % (2-9); NEUTROPHILS % (AUTO) 66 % (42-75); PLATELET COUNT 113 x10^3/uL (130-400)
[2020-02-14 07:15] VITALS: BP 152/99
[2020-02-14] MEDS ORDERED: POTASSIUM CHLORIDE 20 MEQ TAB.ER.PRT PO ONE (08:00)
[2020-02-14] MEDS ORDERED: CEFTRIAXONE PMX 1GM/50ML 50 ML IV ONE (08:00)
[2020-02-14] MEDS: LISINOPRIL 20 MG TABLET PO SCH (08:45)
[2020-02-14] MEDS: NICOTINE 21 MG/24 HR PATCH.TD24 TD SCH (08:47)
[2020-02-14] MEDS ORDERED: MAGNESIUM SULFATE PMX 2GM/50ML 50 ML IV ONE (10:30)
[2020-02-14] MEDS ORDERED: ACETAMINOPHEN 325 MG TABLET PO PRN (10:30)
[2020-02-14] MEDS: ENOXAPARIN 40 MG/0.4 ML SQ SCH (12:07)
[2020-02-14 12:17] VITALS: BP 141/99
[2020-02-14 20:35] VITALS: BP 146/98
[2020-02-15] MEDS: LACTATED RINGERS 1,000 ML IV SCH ×2 (01:00→12:25)
[2020-02-15 01:54] VITALS: BP 157/107
[2020-02-15] MEDS: LORazepam 2 MG/ML, 1ML IV PRN ×2 (02:48→12:20)
[2020-02-15 05:53] LABS: ANION GAP 7 mmol/L (5-15); CALCIUM 8.2 mg/dL (8.5-10.1); CHLORIDE 107 mmol/L (98-107); CREATININE 0.44 mg/dL (0.55-1.02)
[2020-02-15] MEDS: OMEPRAZOLE 20 MG CAPSULE.DR PO SCH (06:00)
[2020-02-15 06:51] VITALS: BP 160/98
[2020-02-15] MEDS ORDERED: POTASSIUM CHLORIDE 20 MEQ TAB.ER.PRT PO ONE (07:30)
[2020-02-15] MEDS: LISINOPRIL 20 MG TABLET PO SCH (08:47)
[2020-02-15] MEDS: NICOTINE 21 MG/24 HR PATCH.TD24 TD SCH (08:49)
[2020-02-15] MEDS: ENOXAPARIN 40 MG/0.4 ML SQ SCH (12:21)
[2020-02-15] MEDS ORDERED: CEPH500T PO (12:23)
== END 2020-02-15 13:43 | disposition home or self-care (01) | DRG 897 ==
LOC: ED 09:48 → EDIP 11:43 → OBSVTOIN 11:56 → 4WST 15:41 → DCLOUNGE 02-15 13:28
PROVIDERS: ADMIT Internal Medicine; ATTEND Internal Medicine
PROC: HZ2ZZZZ Detoxification Services for Substance Abuse Treatment (ICD-10-PCS; principal; 2020-02-13)
PROC: 2W3FX1Z Immobilization of Left Hand using Splint (ICD-10-PCS; 2020-02-13)
DX: F10.239 Alcohol dependence with withdrawal, unspecified (principal); E83.42 Hypomagnesemia; E87.6 Hypokalemia; F12.10 Cannabis abuse, uncomplicated; F17.200 Nicotine dependence, unspecified, uncomplicated; F41.9 Anxiety disorder, unspecified; I10 Essential (primary) hypertension; K70.10 Alcoholic hepatitis without ascites; N30.90 Cystitis, unspecified without hematuria; R39.15 Urgency of urination; S62.234A Other nondisplaced fracture of base of first metacarpal bone, right hand, initial encounter for closed fracture; S62.235A Other nondisplaced fracture of base of first metacarpal bone, left hand, initial encounter for closed fracture; W18.39XA Other fall on same level, initial encounter; Z56.0 Unemployment, unspecified; Z80.8 Family history of malignant neoplasm of other organs or systems; Y93.89 Activity, other specified; Y92.098 Other place in other non-institutional residence as the place of occurrence of the external cause; Y99.8 Other external cause status; Y90.5 Blood alcohol level of 100-119 mg/100 ml
CPT/HCPCS: 36415; 76700; 80048; 80053; 80307; 81001; 83690; 83735; 84100; 84703; 85025; 85610; 87086; 93005; G0378; J0696; J1650; J2405; J3411; J2060; J3475; J7030; J7120

== ENCOUNTER 2020-02-25 16:05 | Emergency (ER) | payer MEDICAID ==
[~2020-02-25] VITALS: Ht 167.6 cm; Wt 64.9 kg
[~2020-02-25 16:05] MED LIST changes: +CEPH500T PO
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
[2020-02-25] MEDS ORDERED: SODIUM CHLORIDE FLUSH 10ML SYR IVF ONE (16:30)
[2020-02-25] MEDS ORDERED: ONDANSETRON 2MG/ML, 2ML IVPush ONE (16:30)
[2020-02-25] MEDS ORDERED: HYDROmorphone 1 MG/ML, 1ML INJ ONE ×2 (16:32→18:04)
[2020-02-25] MEDS ORDERED: ONDANSETRON 2MG/ML, 2ML ONE (16:32)
[2020-02-25] MEDS: HYDROmorphone 1 MG/ML, 1ML INJ IVPush PRN ×2 (16:39→18:08)
[2020-02-25 16:48] LABS: BASOPHILS # (AUTO) 0.01 x10^3/uL (0-0.1); BASOPHILS % (AUTO) 0 % (0-1); EOSINOPHILS # (AUTO) 0.02 x10^3/uL (0-0.4); EOSINOPHILS % (AUTO) 0 % (1-7); LYMPHOCYTES # (AUTO) 1.43 x10^3/uL (1-3.4); LYMPHOCYTES % (AUTO) 9 % (22-44); MD NO; MEAN CORPUSCULAR HEMOGLOBIN 33.5 pg (27.0-34.8); MEAN CORPUSCULAR HGB CONC 32.8 g/dL (32.4-35.8); MEAN CORPUSCULAR VOLUME 102.3 fL (80-100); MEAN PLATELET VOLUME 7.3 fL (7.4-10.4); MONOCYTES # (AUTO) 0.63 x10^3/uL (0.2-0.8); MONOCYTES % (AUTO) 4 % (2-9); NEUTROPHILS # (AUTO) 13.75 x10^3/uL (1.8-6.8); NEUTROPHILS % (AUTO) 87 % (42-75); PLATELET COUNT 506 x10^3/uL (130-400); RED BLOOD COUNT 4.73 x10^6/uL (3.82-5.3); RED CELL DISTRIBUTION WIDTH 13.9 % (9.6-15.2)
--- NOTE | 2020-02-25 16:48 | NUR ---
PT TRANSPORTED TO CT.
[2020-02-25 17:00] LABS: ALANINE AMINOTRANSFERASE 114 U/L (12-78); ALBUMIN 4.2 g/dL (3.4-5.0); ANION GAP 11 mmol/L (5-15); CALCIUM 9.1 mg/dL (8.5-10.1); CHLORIDE 112 mmol/L (98-107); CREATININE 0.86 mg/dL (0.55-1.02)
[2020-02-25 17:05] LABS: ALKALINE PHOSPHATASE 129 U/L (45-117); BILIRUBIN,TOTAL 0.2 mg/dL (0.2-1.0); TOTAL PROTEIN 8.1 g/dL (6.4-8.2)
[2020-02-25 18:32] VITALS: BP 123/76
--- NOTE | 2020-02-25 19:34 | NUR ---
REPORT GIVEN TO ROXANNA HOFFMAN RN AT [facility].
--- NOTE | 2020-02-25 19:45 | NUR ---
[facility] HERE FOR TRANSFER TO [facility], REPORT GIVEN TO EMS.
== END 2020-02-25 19:55 | disposition short-term general hospital (02) ==
LOC: ED 18:05
DX: S22.42XA Multiple fractures of ribs, left side, initial encounter for closed fracture (principal); S00.81XA Abrasion of other part of head, initial encounter; S20.412A Abrasion of left back wall of thorax, initial encounter; S40.811A Abrasion of right upper arm, initial encounter; S27.0XXA Traumatic pneumothorax, initial encounter; S09.90XA Unspecified injury of head, initial encounter; J90 Pleural effusion, not elsewhere classified; F10.129 Alcohol abuse with intoxication, unspecified; I10 Essential (primary) hypertension; V86.59XA Driver of other special all-terrain or other off-road motor vehicle injured in nontraffic accident, initial encounter; Y93.89 Activity, other specified; Y92.89 Other specified places as the place of occurrence of the external cause; Y99.8 Other external cause status; Y90.0 Blood alcohol level of less than 20 mg/100 ml
CPT/HCPCS: 36415; 70450; 70486; 71101; 71250; 80053; 80307; 84703; 85025; 96374; 96375; 96376; 99285; J1170; J2405

== ENCOUNTER 2020-05-21 12:05 | Inpatient (IN) | payer MEDICAID ==
[~2020-05-21] VITALS: Ht 162.6 cm; Wt 70.3 kg
[~2020-05-21 12:05] MED LIST changes: -NICO-487 TD; +NICO-587 TD
[2020-05-21 12:54] LABS: MEAN CORPUSCULAR HEMOGLOBIN 33.5 pg (27.0-34.8); MEAN CORPUSCULAR HGB CONC 34.9 g/dL (32.4-35.8); MEAN PLATELET VOLUME 7.6 fL (7.4-10.4); PLATELET COUNT 301 x10^3/uL (130-400); RED BLOOD COUNT 4.62 x10^6/uL (3.82-5.3); RED CELL DISTRIBUTION WIDTH 13.9 % (9.6-15.2)
[2020-05-21] MEDS ORDERED: QUET100T4 PO (12:59)
[2020-05-21] MEDS ORDERED: [UNRECOGNIZED DRUG - CODE] PO (12:59)
[2020-05-21] MEDS ORDERED: BUPR150T8 PO (12:59)
[2020-05-21] MEDS ORDERED: MORPHINE SULFATE 4 MG/ML, 1ML IVPush PRN ×2 (13:00→20:00)
[2020-05-21] MEDS ORDERED: ONDANSETRON 2MG/ML, 2ML IVPush ONE ×2 (13:00→15:00)
[2020-05-21 13:05] LABS: INTERNATIONAL NORMALIZED RATIO 1.1 (0.93-1.1); PROTHROMBIN TIME 11.7 Seconds (9.6-11.5)
[2020-05-21 13:06] LABS: ALANINE AMINOTRANSFERASE 30 U/L (12-78); ALBUMIN 4.5 g/dL (3.4-5.0); ANION GAP 13 mmol/L (5-15); CALCIUM 8.9 mg/dL (8.5-10.1); CHLORIDE 102 mmol/L (98-107); CREATININE 1.14 mg/dL (0.55-1.02)
[2020-05-21 13:08] LABS: MD YES
[2020-05-21 13:09] LABS: <PLATELET ESTIMATE> ADEQUATE; <PLT MORPHOLOGY> NORMAL PLT MORPH; <RBC MORPHOLOGY> NORMAL; BAND#(MANUAL) 0.35 x10^3/uL; BANDS%(MANUAL) 2 % (0-7); LYMPH#(MANUAL) 1.41 x10^3/uL (1-3.4); LYMPHS% (MANUAL) 8 % (22-44); MONOS#(MANUAL) 0.35 x10^3/uL (0.3-2.7); MONOS% (MANUAL) 2 % (2-9); SEG#(MANUAL) 15.49 x10^3/uL (1.8-6.8); SEGS% (MANUAL) 88 % (42-75)
[2020-05-21 13:10] LABS: ALKALINE PHOSPHATASE 146 U/L (45-117); BILIRUBIN,TOTAL 0.8 mg/dL (0.2-1.0); TOTAL PROTEIN 8.1 g/dL (6.4-8.2)
[2020-05-21] MEDS ORDERED: SODIUM CHLORIDE FLUSH 10ML SYR IVF ONE (13:30)
[2020-05-21] MEDS ORDERED: ONDANSETRON 2MG/ML, 2ML ONE (13:37)
[2020-05-21] MEDS ORDERED: MORPHINE SULFATE 4 MG/ML, 1ML ONE (13:43)
[2020-05-21] MEDS ORDERED: PROMETHAZINE 25 MG/ML, 1ML IM ONE (14:00)
[2020-05-21] MEDS ORDERED: PROMETHAZINE 25 MG/ML, 1ML ONE (14:29)
[2020-05-21] MEDS ORDERED: SODIUM CHLORIDE 0.9% 1,000ML IVBOLUS ONE (14:30)
[2020-05-21 15:08] LABS: MICROSCOPIC INDICATED
[2020-05-21] MEDS ORDERED: HYDROmorphone 2 MG/ML, 1ML IVPush PRN (16:30)
[2020-05-21] MEDS ORDERED: METOCLOPRAMIDE 5 MG/ML, 2ML IVPush ONE (16:30)
[2020-05-21] MEDS ORDERED: HYDROmorphone 1 MG/ML, 1ML INJ ONE (16:34)
[2020-05-21] MEDS ORDERED: METOCLOPRAMIDE 5 MG/ML, 2ML ONE (16:34)
[2020-05-21] MEDS: HYDROmorphone 1 MG/ML, 1ML INJ IVPush PRN ×2 (16:39→20:29)
--- NOTE | 2020-05-21 16:45 | NUR ---
Patient ambulated to restroom without assistance, states pain increasing with movement and further attempts to vomit. Medication orders received.
--- NOTE | 2020-05-21 17:14 | NUR ---
REPORT TO GOSIA
[2020-05-21] MEDS ORDERED: OMNIPAQUE 350 MG/ML, 100ML BOTTLE ONE (17:32)
[2020-05-21 17:50] VITALS: BP 162/103
[2020-05-21 17:59] VITALS: BP 162/103
[2020-05-21 19:32] VITALS: BP 164/95
[2020-05-21] MEDS ORDERED: ENALAPRILAT 1.25 MG/ML, 2ML IVPush PRN (20:00)
[2020-05-21] MEDS ORDERED: DOCUSATE 100 MG CAPSULE PO PRN (20:00)
[2020-05-21] MEDS ORDERED: CHLORDIAZEPOXIDE 25 MG CAPSULE PO PRN ×3 (20:00)
[2020-05-21] MEDS ORDERED: LORazepam 2 MG/ML, 1ML IV PRN (20:00)
[2020-05-21] MEDS ORDERED: CHLORDIAZEPOXIDE 10 MG CAPSULE PO PRN (20:00)
[2020-05-21] MEDS ORDERED: BISACODYL 10 MG SUPP PR PRN (20:00)
[2020-05-21] MEDS ORDERED: THIAMINE 200 MG in DEXTROSE 5% 50 ML IVPB ONE (21:30)
[2020-05-21] MEDS ORDERED: FOLIC ACID 5 MG/ML IM ONE (21:30)
[2020-05-21] MEDS: CHLORDIAZEPOXIDE 25 MG CAPSULE PO SCH (22:33)
[2020-05-21] MEDS: ENOXAPARIN 30 MG/0.3 ML SQ SCH (22:34)
[2020-05-21] MEDS ORDERED: FOLIC ACID 1 MG TABLET PO ONE (23:00)
[2020-05-21] MEDS: ONDANSETRON 2MG/ML, 2ML IVPush PRN (23:01)
[2020-05-21] MEDS: HYDROmorphone 2 MG/ML, 1ML IVPush PRN (23:01)
[2020-05-21] MEDS: SODIUM CHLORIDE 0.9% 1,000 ML IV SCH (23:01)
[2020-05-22 01:05] VITALS: BP 164/111
[2020-05-22] MEDS: SODIUM CHLORIDE 0.9% 1,000 ML IV SCH ×4 (02:00→23:08)
[2020-05-22] MEDS ORDERED: DIPHENHYDRAMINE 50 MG/ML, 1ML ONE (02:50)
[2020-05-22] MEDS: DIPHENHYDRAMINE 50 MG/ML, 1ML IVPush PRN (02:53)
[2020-05-22] MEDS ORDERED: PROMETHAZINE 25MG TABLET PO PRN (03:00)
[2020-05-22 05:58] LABS: BASOPHILS % (AUTO) 0 % (0-1); EOSINOPHILS % (AUTO) 0 % (1-7); LYMPHOCYTES % (AUTO) 7 % (22-44); MEAN CORPUSCULAR HEMOGLOBIN 33.3 pg (27.0-34.8); MEAN CORPUSCULAR HGB CONC 34.5 g/dL (32.4-35.8); MEAN PLATELET VOLUME 8.3 fL (7.4-10.4); MONOCYTES % (AUTO) 5 % (2-9); NEUTROPHILS % (AUTO) 87 % (42-75); PLATELET COUNT 215 x10^3/uL (130-400); RED CELL DISTRIBUTION WIDTH 14.2 % (9.6-15.2)
[2020-05-22] MEDS: ONDANSETRON 2MG/ML, 2ML IVPush PRN ×2 (05:58→13:09)
[2020-05-22] MEDS: CHLORDIAZEPOXIDE 25 MG CAPSULE PO SCH ×4 (05:58→22:20)
[2020-05-22] MEDS: HYDROmorphone 2 MG/ML, 1ML IVPush PRN ×5 (05:59→20:17)
[2020-05-22 06:03] LABS: ALBUMIN 3.5 g/dL (3.4-5.0); ANION GAP 8 mmol/L (5-15); CALCIUM 8.1 mg/dL (8.5-10.1); CHLORIDE 109 mmol/L (98-107)
[2020-05-22 06:07] LABS: ALANINE AMINOTRANSFERASE 21 U/L (12-78); ALKALINE PHOSPHATASE 128 U/L (45-117); BILIRUBIN,TOTAL 0.8 mg/dL (0.2-1.0); CREATININE 0.72 mg/dL (0.55-1.02); TOTAL PROTEIN 6.6 g/dL (6.4-8.2)
[2020-05-22 06:09] LABS: MD NO
[2020-05-22] MEDS ORDERED: POTASSIUM CHLORIDE 40 MEQ in SODIUM CHLORIDE 0.9% 500 ML IV ONE (07:00)
[2020-05-22 07:13] VITALS: BP 148/103
[2020-05-22] MEDS ORDERED: PANTOPRAZOLE 40 MG IV IVPush SCH (07:30)
[2020-05-22] MEDS: QUETIAPINE 100MG TABLET PO SCH (07:56)
[2020-05-22] MEDS: LISINOPRIL 20 MG TABLET PO SCH (07:56)
[2020-05-22] MEDS: BUPROPION SR 150 MG TABLET PO SCH (07:56)
[2020-05-22] MEDS: ENOXAPARIN 30 MG/0.3 ML SQ SCH ×2 (08:26→20:08)
[2020-05-22] MEDS ORDERED: BUPROPION SR 150 MG TABLET PO SCH (09:00)
[2020-05-22] MEDS: THIAMINE 100MG TABLET PO SCH (10:56)
[2020-05-22 13:04] VITALS: BP 138/109
[2020-05-22 19:48] VITALS: BP 134/92
[2020-05-23 00:29] VITALS: BP 138/92
[2020-05-23] MEDS: HYDROmorphone 2 MG/ML, 1ML IVPush PRN ×2 (03:28→08:48)
[2020-05-23] MEDS: CHLORDIAZEPOXIDE 25 MG CAPSULE PO SCH ×3 (04:34→17:48)
[2020-05-23] MEDS: PANTOPRAZOLE 40MG TABLET PO SCH (05:45)
[2020-05-23] MEDS: SODIUM CHLORIDE 0.9% 1,000 ML IV SCH (05:45)
[2020-05-23 05:47] LABS: BASOPHILS % (AUTO) 0 % (0-1); EOSINOPHILS % (AUTO) 2 % (1-7); LYMPHOCYTES % (AUTO) 9 % (22-44); MEAN CORPUSCULAR HEMOGLOBIN 33.2 pg (27.0-34.8); MEAN PLATELET VOLUME 8.8 fL (7.4-10.4); MONOCYTES % (AUTO) 7 % (2-9); NEUTROPHILS % (AUTO) 82 % (42-75); PLATELET COUNT 161 x10^3/uL (130-400); RED BLOOD COUNT 4.02 x10^6/uL (3.82-5.3); RED CELL DISTRIBUTION WIDTH 13.9 % (9.6-15.2)
[2020-05-23 05:50] LABS: MD NO
[2020-05-23 05:56] LABS: CHLORIDE 107 mmol/L (98-107)
[2020-05-23 06:04] LABS: ALANINE AMINOTRANSFERASE 14 U/L (12-78); ALBUMIN 2.8 g/dL (3.4-5.0); ALKALINE PHOSPHATASE 99 U/L (45-117); ANION GAP 7 mmol/L (5-15); BILIRUBIN,TOTAL 0.9 mg/dL (0.2-1.0); CALCIUM 7.7 mg/dL (8.5-10.1); TOTAL PROTEIN 5.9 g/dL (6.4-8.2)
[2020-05-23] MEDS ORDERED: POTASSIUM CHLORIDE 40 MEQ in SODIUM CHLORIDE 0.9% 500 ML IV ONE (06:30)
[2020-05-23 07:25] VITALS: BP 145/105
[2020-05-23] MEDS: ENOXAPARIN 30 MG/0.3 ML SQ SCH ×2 (08:00→20:00)
[2020-05-23] MEDS: LISINOPRIL 20 MG TABLET PO SCH (08:38)
[2020-05-23] MEDS: THIAMINE 100MG TABLET PO SCH (08:39)
[2020-05-23] MEDS: BUPROPION SR 150 MG TABLET PO SCH (08:39)
[2020-05-23] MEDS: QUETIAPINE 100MG TABLET PO SCH (08:39)
[2020-05-23 12:28] VITALS: BP 134/94
[2020-05-23] MEDS: HYDROcodone/APAP 5/325 TABLET PO PRN ×2 (16:32→20:35)
[2020-05-23] MEDS ORDERED: SODIUM CHLORIDE 0.9% 1,000 ML IV SCH ×2 (20:00)
[2020-05-23 20:31] VITALS: BP 136/94
[2020-05-23] MEDS: DIPHENHYDRAMINE 50 MG/ML, 1ML IVPush PRN (20:46)
[2020-05-24 01:01] VITALS: BP 133/92
[2020-05-24 04:37] LABS: ALBUMIN 2.8 g/dL (3.4-5.0); ANION GAP 7 mmol/L (5-15); CALCIUM 8.2 mg/dL (8.5-10.1); CHLORIDE 109 mmol/L (98-107)
[2020-05-24 04:42] LABS: ALANINE AMINOTRANSFERASE 13 U/L (12-78); ALKALINE PHOSPHATASE 95 U/L (45-117); BILIRUBIN,TOTAL 0.6 mg/dL (0.2-1.0); CREATININE 0.74 mg/dL (0.55-1.02)
[2020-05-24] MEDS: PANTOPRAZOLE 40MG TABLET PO SCH (05:07)
[2020-05-24] MEDS: HYDROcodone/APAP 5/325 TABLET PO PRN ×2 (05:15→11:26)
[2020-05-24] MEDS ORDERED: POTASSIUM CHLORIDE 20 MEQ TAB.ER.PRT PO ONE (07:00)
[2020-05-24 07:05] VITALS: BP 153/101
[2020-05-24] MEDS: ENOXAPARIN 30 MG/0.3 ML SQ SCH (07:39)
[2020-05-24] MEDS: QUETIAPINE 100MG TABLET PO SCH (07:42)
[2020-05-24] MEDS: THIAMINE 100MG TABLET PO SCH (07:42)
[2020-05-24] MEDS: LISINOPRIL 20 MG TABLET PO SCH (07:42)
[2020-05-24] MEDS: BUPROPION SR 150 MG TABLET PO SCH (07:43)
[2020-05-24 12:30] VITALS: BP 140/94
[2020-05-24] MEDS ORDERED: HYDR-3237 PO (13:06)
== END 2020-05-24 15:45 | disposition home or self-care (01) | DRG 439 ==
LOC: ED 15:04 → EDIP 15:26 → 3N 17:42
PROVIDERS: ADMIT Internal Medicine; ATTEND Internal Medicine
DX: K85.20 Alcohol induced acute pancreatitis without necrosis or infection (principal); F10.239 Alcohol dependence with withdrawal, unspecified; N39.0 Urinary tract infection, site not specified; E87.6 Hypokalemia; F10.229 Alcohol dependence with intoxication, unspecified; F12.10 Cannabis abuse, uncomplicated; F17.210 Nicotine dependence, cigarettes, uncomplicated; F32.9 Major depressive disorder, single episode, unspecified; F41.9 Anxiety disorder, unspecified; I10 Essential (primary) hypertension; Z80.8 Family history of malignant neoplasm of other organs or systems
CPT/HCPCS: 36415; 74177; 76700; 80053; 81001; 82977; 83690; 84703; 85025; 85610; 87086; 96372; 96374; 96375; 99285; G0378; J1170; J1650; J2405; J2550; J3411; J3480; Q9967; C9113; J1200; J2270; J2765; J7030; J7040